=== PATIENT | male | born 1945 | race Caucasian/White ===

== ENCOUNTER 2018-01-16 08:00 | Day surgery (SDC) | payer MEDICARE ==
--- NOTE | 2018-01-16 06:29 | History and Physical - [place] ---
CHIEF COMPLAINT/HISTORY OF CHIEF COMPLAINT: This patient presents with a history of intractable lumbar radiculopathy. Due to the failure of all therapies, a spinal cord stimulator trial was conducted on 11/15/17 with 75-85% pain control. Due to the failure of all therapies and the success of the trial , the patient presents today for implantation of a permanent system. PAST MEDICAL HISTORY: Hypertension , sleep apnea, and reflux esophagitis. PAST SURGICAL HISTORY: Knee replacement, rotator cuff surgery, patellar and tendon repair. EMPLOYMENT STATUS: Retired. MEDICATIONS ON ADMISSION: List to be provided. ALLERGIES: None. FAMILY/PSYCHOSOCIAL HISTORY: Social history - Noncontributory. Family history - Asthma and diabetes. SYSTEMS REVIEW: The patient is appropriate in no acute distress. The remainder of the systems review is positive for bilateral hearing deficits, dentures, and scoliosis. PHYSICAL EXAMINATION: Height is 6'3", weight is 220. No vital signs. HEENT: Within normal limits. LUNGS: Clear. HEART: Regular rate and rhythm. ABDOMEN: Nontender. MUSCULOSKELETAL: Examination of the musculoskeletal system shows the pain across the back and into both lower extremities. The pattern of pain follows a L5-S1, even a L4-L5 pattern somewhat more right than left. Motor and sensory field evaluations show weakness in both legs with mild sensory abnormalities bilaterally. No assistive device used for ambulation. NEUROLOGIC: Cranial nerves are intact. IMPRESSION: LUMBAR RADICULOPATHY, ICD-10 CODE M54.16 AND M54.17. PLAN: The patient is here on an outpatient basis for implantation of a permanent spinal cord stimulator. We will evaluate the possibility of an overnight stay, but we will consider this to be outpatient. Potential risks, side effects and complications have all been reviewed and discussed. JOB NUMBER: [id number] [facility]
[~2018-01-16 08:00] MED LIST: ACETAMINOPHEN 1,000 MG/100 ML BTL IV ONE; CEFAZOLIN 2 Gram 2 GM/50 ML BAG IVPB ONE; FAMOTIDINE 20MG TABLET PO ONE; MECLIZINE 25 MG TABLET PO ONE; METOCLOPRAMIDE 10 MG TABLET PO ONE
[2018-01-16] MEDS ORDERED: LIDOCAINE 2% MDV (20MG/ML) 20ML VIAL IV ONE (08:01)
[2018-01-16] MEDS ORDERED: LIDOCAINE 1% W/EPI 1:200,000 MPF 30ML SQ ONE (08:01)
[2018-01-16] MEDS ORDERED: FENTANYL PF 100MCG/2ML VIAL IV ONE (08:01)
[2018-01-16] MEDS ORDERED: PROPOFOL 10 MG/ML VIAL IV ONE (08:01)
[2018-01-16] MEDS ORDERED: CEFAZOLIN 1G VIAL IM ONE (08:01)
[2018-01-16] MEDS ORDERED: 0.9 % SODIUM CHLORIDE 10 ML VIAL IVP ONE (08:01)
[2018-01-16] MEDS ORDERED: HYDROMORPHONE HCL 2 MG/ML VIAL IV ONE (08:01)
[2018-01-16] MEDS ORDERED: BUPIVACAINE 0.5% W/EPI MPF 30 ML VIAL IVP ONE (08:01)
[2018-01-16] MEDS ORDERED: MIDAZOLAM HCL 2MG/2ML VIAL IV ONE (08:01)
[2018-01-16] MEDS ORDERED: FLUMAZENIL 1MG/10ML VIAL IV ONE (08:01)
--- NOTE | 2018-01-18 12:43 | RADIOLOGY REPORT ---
EXAM: THORACIC SPINE HISTORY: PAIN STIMULATOR PLACEMENT. TECHNIQUE: A single AP view of the thoracic spine was performed. FINDINGS: The stimulator lead tips are at the T6-T7 level. IMPRESSION: PAIN STIMULATOR LEAD TIPS ARE AT THE T6-T7 LEVEL. JOB NUMBER: [id number] [facility]
--- NOTE | 2018-01-19 07:48 | Operative Note ---
DATE OF SURGERY: 01/16/18 PREOPERATIVE DIAGNOSES: 1. INTRACTABLE LUMBAR RADICULOPATHY, ICD-10 CODE = M54.16 AND M54.17. 2. MODERATELY SEVERE THORACOLUMBAR ROTOSCOLIOSIS, ICD-10 CODE = M41.25. OPERATION: 1. FLUOROSCOPICALLY-GUIDED EPIDURAL ACCESS LEFT T12-L1. PLACEMENT OF SPINAL CORD STIMULATOR LEAD 1, A [employer] 16 WITH 6 ELECTRODES POSITIONED LEFT T7. 2. FLUOROSCOPICALLY-GUIDED EPIDURAL ACCESS LEFT T11-12, PLACEMENT OF SPINAL CORD STIMULATOR LEAD 2, A [employer] 16 WITH 6 ELECTRODES POSITIONED RIGHT T7. 3. COMPLEX PROGRAMMING OF LEAD 1 OVER 20 MINUTES FOLLOWED BY COMPLEX PROGRAMMING OF LEAD 2 OVER 20 MINUTES. 4. INCISION, SUBCUTANEOUS DISSECTION, AND ANCHORING OF LEAD 1 AND LEAD 2 TO SUPRASPINOUS FASCIA USING A [employer] SCIENTIFIC LOCKING ANCHOR. 5. INCISION, SUBCUTANEOUS DISSECTION, AND CREATION OF SUBCUTANEOUS POUCH AT LEFT FLANK FOR PLACEMENT OF GENERATOR IDENTIFIED [employer] PROGRAMMABLE RECHARGEABLE WAVEWRITER. 6. TUNNELING BETWEEN POUCHES, PLACEMENT OF EXTERNAL PORTION OF LEAD 1 AND LEAD 2 INTO GENERATOR POUCH, EACH LEAD INTERFACED TO GENERATOR. 7. PLACEMENT OF GENERATOR INTO POUCH, PLACEMENT OF LEADS INTO POUCH. CLOSURE OF BOTH INCISIONS STRATAFIX SUTURE, 2-0 FASCIA AND 3-0 SKIN. DERMABOND CLOSURE. 8. COMPLEX RECOVERY ROOM PROGRAMMING INTERNAL GENERATOR HOME USE, TWO STIMULATORS, 20 MINUTES. SURGEON: RYAN MOYA D.O. ANESTHESIA: LOCAL SEDATION. ANESTHESIA PROVIDER: ALICIA FOLEY CRNA. INDICATION: This patient presents with a history of intractable lumbar radiculopathy. Due to the failure of therapy, a spinal cord stimulator trial was conducted with 75 to 85% pain control. Due to the failure of all therapies and the success of the trial, the patient presents today for implantation of a permanent system. PROCEDURE: Intravenous line, vital sign monitoring, IV sedation, prepped and draped sterile technique. Under imaging, the epidural interspace left at 12-1 and 11-12 were marked and infiltrated. A separate curved access Epimed needles with [id number] into the space. At 12-1, spinal cord stimulator lead 1, a [employer] 16 with 6 electrodes positioned left T7. With the epidural access at 11-12, spinal cord stimulator lead 2, a [employer] 16 with 6 electrodes positioned right at T7. Complex programming of lead 1 over 20 minutes followed by complex programming of lead 2 over 20 minutes resulting in complete patterns of stimulation across the back and into the legs; patient indicating we are in all of the areas of the pain. The skin below the needles was infiltrated and incision was made and subcutaneous dissection was conducted to the supraspinous fascia. Each of the needle was removed then each lead was anchored to the supraspinous fascia with a [employer] [place] and nonabsorbable suture. At the left flank; site picked by the patient for the generator, skin infiltrated, incision made, and subcutaneous dissection was conducted to form a pouch of suitable size and depth for the generator. A tunneling tool was used to carry the leads into the generator pouch and then each lead was interfaced to the generator. Antibiotic irrigation and Bovie for hemostasis. The leads were interfaced to the generator , placed into the pouch, and secured to the fascia with nonabsorbable suture. The leads were placed into their own and then both incisions were closed using STRATAFIX suture, 2-0 fascia and 3-0 skin, and a Dermabond closure approximating the edges of both wounds. He was transported to the Recovery Room stable. No side-effects from the procedure or the sedation. When fully awake and alert, complex programming of the generator performed in the Recovery Room over 20 minutes re-establishing stimulation and pain control to all of the appropriate areas. The patient and were instructed on the use of the system , provided information, how to error message, and then prepared for discharge. DISCHARGE INSTRUCTIONS: 1. Sites remain clean and dry. No showering or bathing in any way that would disrupt the dressings. Although the Dermabond will allow showering, he should not sit in water. 2. Standard medications resumed including the antibiotic Levaquin 500 mg once a day for 14 days. 3. The patient will be seen in the office in 7-10 days. Through that period of time, he is to keep his activities low. 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 At that point, he will be cleared for further activities. cc: Dr. Adeel Mercer JOB NUMBER: [id number] [facility]
== END 2018-01-16 12:30 | disposition home or self-care (01) ==
LOC: SUR 08:00
PROVIDERS: ATTEND Pain Medicine Interventional Pain Medicine
DX: M54.16 Radiculopathy, lumbar region (principal); M54.17 Radiculopathy, lumbosacral region; M41.25 Other idiopathic scoliosis, thoracolumbar region; I10 Essential (primary) hypertension; E78.00 Pure hypercholesterolemia, unspecified; G47.33 Obstructive sleep apnea (adult) (pediatric)
CPT/HCPCS: 63650; 63685; 01936; 95972; 85002; 72020; J3010; J1170; J0690; C1820; C1883